=== PATIENT | female | born 1935 | race Caucasian/White ===

== ENCOUNTER 2023-09-21 14:49 | Outpatient (REF) | payer MEDICARE, SELFPAY ==
[2023-09-21 17:08] LABS: Vitamin B12 742 pg/mL (200-900)
== END 2023-09-21 14:50 | disposition home or self-care (01) ==
LOC: HO.LAB 14:49
PROVIDERS: PCP Internal Medicine; Visit Provider Psychiatry & Neurology Neurology
DX: F03.90 Unspecified dementia, unspecified severity, without behavioral disturbance, psychotic disturbance, mood disturbance, and anxiety (principal)
CPT/HCPCS: 36415; 82607